=== PATIENT | male | born 1990 | race Caucasian/White ===

== ENCOUNTER 2017-03-29 15:29 | Emergency (ER) | payer SELFPAY ==
[~2017-03-29] VITALS: Ht 175.3 cm; Wt 80.0 kg
[2017-03-29 15:30] VITALS: BP 148/82; PULSE 87; RESP 20; TEMP 98.7; O2SAT 97
[2017-03-29] MEDS ORDERED: CEPHALEXIN MONOHYDRATE 500 MG CAP PO ONE (16:00)
[2017-03-29] MEDS ORDERED: IBUPROFEN 600 MG TAB PO ONE (16:00)
[2017-03-29] MEDS ORDERED: IBUP-232 PO (16:01)
[2017-03-29] MEDS ORDERED: CEPH-460 PO (16:01)
--- NOTE | 2017-03-29 16:01 | PD ---
HPI Chief Complaint: Skin Problem Time Seen by Provider: 15:36 Travel History International Travel<30 days: No Contact w/Intl Traveler<30days: No Traveled to known affect area: No History of Present Illness HPI 27 yo M c/o pain and swelling along R elbow for about 1 week. pt reports fever yesterday. he believes a box may have slid down his arm causing some injury while he was working. no open skin or bleed reproted. pain is gradually decreasing in severity. no swelling about the arm. no distal arm pain/swelling/ sensory change. PFSH Past Medical History Anxiety: Yes Cardiovascular Problems: No Endocrine: No Genitourinary: No Hypertension: Yes Immune Disorder: No Musculoskeletal: No Neurologic: No Reproductive: No Respiratory: No Past Surgical History Abdominal Surgery: No Cardiac Surgery: No Ear Surgery: No Endocrine Surgery: No Eye Surgery: No Genitourinary Surgery: No Gynecologic Surgery: No Oral Surgery: No Thoracic Surgery: No Other Surgery: Yes Social History Alcohol Use: Yes (WEEKENDS) Tobacco Use: No Substance Use: No Allergies-Medications (Allergen,Severity, Reaction): Coded Allergies: No Known Allergies (Verified Adverse Reaction, Unknown, 03/29/17) Reported Meds & Prescriptions Reported Meds & Active Scripts Active Keflex (Cephalexin) 500 Mg Cap 500 Mg PO Q8H 7 Days Ibuprofen 600 Mg Tab 600 Mg PO Q8H 7 Days Review of Systems Except as stated in HPI: all other systems reviewed are Neg General / Constitutional: No: Fever Skin: Positive Lesions, No Rash Physical Exam Narrative GENERAL: 27 yo M, WNWD, NAD, pleasant SKIN: Warm and dry. Along the Radial aspect of the antecubital fossa there is about 5 cm x 1 cm nodule minimal tender somewhat firm swelling. no fluctuance. no erythema or warmth. HEAD: Atraumatic. Normocephalic. EYES: Pupils equal and round. No scleral icterus. No injection or drainage. ENT: No nasal bleeding or discharge. Mucous membranes pink and moist. NECK: Trachea midline. No JVD. CARDIOVASCULAR: Regular rate and rhythm. 2+ radial artery pulse bilaterally. RESPIRATORY: No accessory muscle use. Clear to auscultation. Breath sounds equal bilaterally. GASTROINTESTINAL: Abdomen soft, non-tender, nondistended. Hepatic and splenic margins not palpable. MUSCULOSKELETAL: Extremities without clubbing, cyanosis, or edema. No obvious deformities. No sign upper extremity DVT. NEUROLOGICAL: Awake and alert. No obvious cranial nerve deficits. Motor grossly within normal limits. Five out of 5 muscle strength in the arms and legs. Normal speech. PSYCHIATRIC: Appropriate mood and affect; insight and judgment normal. Data Data Last Documented VS Vital Signs Date Time Temp Pulse Resp B/P (MAP) Pulse Ox O2 Delivery O2 Flow Rate FiO2 03/29/17 15:30 98.7 87 20 148/82 (104) 97 Room Air vs reviewed Orders Orders Ed Discharge Order (03/29/17 15:59) Ibuprofen (Motrin) (03/29/17 16:00) Cephalexin (Keflex) (03/29/17 16:00) MDM Medical Decision Making Medical Screen Exam Complete: Yes Emergency Medical Condition: Yes Medical Record Reviewed: Yes Differential Diagnosis abscess, cellulitis, supervficial thrombophlebitis Narrative Course trace cellulitis is a possibility superficial thrombophlebitis is a possible consideration no sign DVT and Doppler carries very low pretest probability Diagnosis Primary Impression: Superficial thrombophlebitis Qualified Codes: I80.8 - Phlebitis and thrombophlebitis of other sites Med/Other Pt SpecificInfo: Prescription(s) given Scripts Cephalexin (Keflex) 500 Mg Cap 500 MG PO Q8H for Infection for 7 Days, #21 CAP 0 Refills Prov: Jesus Manuel Luna MD 03/29/17 Ibuprofen (Ibuprofen) 600 Mg Tab 600 MG PO Q8H for 7 Days, #21 TAB 0 Refills Prov: Jesus Manuel Luna MD 03/29/17 Disposition: 01 DISCHARGE HOME Condition: Stable Jesus Manuel Luna MD Mar 29, 2017 16:01
== END 2017-03-29 16:26 | disposition home or self-care (01) ==
LOC: NEPK 15:29
DX: I80.8 Phlebitis and thrombophlebitis of other sites (principal); F41.9 Anxiety disorder, unspecified; I10 Essential (primary) hypertension
CPT/HCPCS: 99283

== ENCOUNTER 2017-07-13 09:55 | Emergency (ER) | payer SELFPAY ==
[~2017-07-13] VITALS: Ht 175.3 cm; Wt 77.0 kg
[~2017-07-13 09:55] MED LIST: CEPH-460 PO; IBUP-232 PO
[2017-07-13 09:58] VITALS: BP 142/86; PULSE 99; RESP 18; TEMP 98; O2SAT 96
--- NOTE | 2017-07-13 11:15 | PD ---
HPI Chief Complaint: Skin Problem Time Seen by Provider: 11:03 Travel History International Travel<30 days: No Contact w/Intl Traveler<30days: No Traveled to known affect area: No History of Present Illness HPI 27-year-old male with recurrent tender firm lump in the right antecubital space of the right elbow on the lateral aspect. Patient states he was seen for this several months ago and treated with antibiotics, and it seemed to improve. He states in the last week the area has become more tender and indurated, patient denies IV drug use. He denies injury to the area. He denies fever, chills, or drainage. Pain is currently about a 5 out of 10. He has no known drug allergies. PFSH Past Medical History Anxiety: Yes Cardiovascular Problems: No Diminished Hearing: No Endocrine: No Genitourinary: No Hypertension: Yes Immune Disorder: No Musculoskeletal: No Neurologic: No Reproductive: No Respiratory: No Tetanus Vaccination: Unknown ?: Not Past Surgical History Abdominal Surgery: No Cardiac Surgery: No Ear Surgery: No Endocrine Surgery: No Eye Surgery: No Genitourinary Surgery: No Gynecologic Surgery: No Oral Surgery: No Thoracic Surgery: No Other Surgery: Yes Social History Alcohol Use: Yes (WEEKENDS) Tobacco Use: No Substance Use: No Allergies-Medications (Allergen,Severity, Reaction): Coded Allergies: No Known Allergies (Verified Adverse Reaction, Unknown, 07/13/17) Reported Meds & Prescriptions Reported Meds & Active Scripts Active Keflex (Cephalexin) 500 Mg Cap 500 Mg PO Q8H 7 Days Ibuprofen 600 Mg Tab 600 Mg PO Q8H 7 Days Review of Systems General / Constitutional: No: Fever Eyes: No: Visual changes HENT: No: Headaches Cardiovascular: No: Chest Pain or Discomfort Respiratory: No: Shortness of Breath Gastrointestinal: No: Abdominal Pain Genitourinary: No: Dysuria Musculoskeletal: No: Pain Skin: Positive Lumps (See history of present), Positive Lesions (See history of present illness), No Rash Neurologic: No: Weakness Psychiatric: No: Depression Endocrine: No: Polydipsia Hematologic/Lymphatic: No: Easy Bruising Physical Exam Narrative GENERAL: Patient is in no acute distress SKIN: Warm and dry. Normal color. Normal turgor. Patient has a firm rubbery feeling lump to the right lateral antecubital space of the right elbow insistent with either lipoma, scar tissue, or possible early abscess. There is no significant erythema. There is no streaking or lymphangitis there is no pointing. HEAD: Atraumatic. Normocephalic. EYES: Pupils equal and round. No scleral icterus. No injection or drainage. ENT: No nasal bleeding or discharge. Mucous membranes pink and moist. Pharynx is clear. Airways patent. NECK: Trachea midline. Supple and nontender. CARDIOVASCULAR: Regular rate and rhythm. No murmurs gallops or rubs RESPIRATORY: No accessory muscle use. Clear to auscultation. Breath sounds equal bilaterally. GASTROINTESTINAL: Abdomen soft, non-tender, nondistended. Hepatic and splenic margins not palpable. MUSCULOSKELETAL: Extremities without clubbing, cyanosis, or edema. No obvious deformities. NEUROLOGICAL: Awake and alert. No obvious cranial nerve deficits. Motor grossly within normal limits. Five out of 5 muscle strength in the arms and legs. Normal speech. PSYCHIATRIC: Appropriate mood and affect; insight and judgment normal. Data Data Last Documented VS Vital Signs Date Time Temp Pulse Resp B/P (MAP) Pulse Ox O2 Delivery O2 Flow Rate FiO2 07/13/17 09:58 98.0 99 18 142/86 (104) 96 MDM Medical Decision Making Medical Screen Exam Complete: Yes Emergency Medical Condition: Yes Differential Diagnosis Lipoma. Scar tissue. Keloid. Cellulitis. Early abscess. Narrative Course Patient is given Bactrim DS twice daily 7 days per Patient is given ibuprofen 800 mg 3 times daily as needed pain #30. Patient to follow-up with [facility] as needed. Diagnosis Primary Impression: Lipoma of left upper extremity Referrals: [facility] Patient Instructions: General Instructions Additional Instructions: Patient is given Bactrim DS twice daily 7 days per Patient is given ibuprofen 800 mg 3 times daily as needed pain #30. Patient to follow-up with [facility] as needed. Med/Other Pt SpecificInfo: Prescription(s) given Disposition: DISCHARGE HOME Condition: Stable Leopoldo Weeks Jul 13, 2017 11:15
[2017-07-13] MEDS ORDERED: BACT800T5 PO (11:16)
[2017-07-13] MEDS ORDERED: IBUP1TAB7 PO (11:16)
== END 2017-07-13 11:29 | disposition home or self-care (01) ==
LOC: NEPD 09:55
DX: D17.22 Benign lipomatous neoplasm of skin and subcutaneous tissue of left arm (principal)
CPT/HCPCS: 99283

== ENCOUNTER 2017-08-04 10:58 | Emergency (ER) | payer SELFPAY ==
[~2017-08-04] VITALS: Ht 175.3 cm; Wt 79.5 kg
[~2017-08-04 10:58] MED LIST changes: +BACT800T5 PO; +IBUP1TAB7 PO
[2017-08-04 11:03] VITALS: BP 127/73; PULSE 84; RESP 18; TEMP 98; O2SAT 98
[2017-08-04] MEDS ORDERED: CLIN150C14 PO (12:50)
[2017-08-04] MEDS ORDERED: DOXY100C PO (12:50)
--- NOTE | 2017-08-04 12:55 | PD ---
HPI Chief Complaint: Lump, Cyst, Hernia Time Seen by Provider: 11:26 Travel History International Travel<30 days: No Contact w/Intl Traveler<30days: No Traveled to known affect area: No History of Present Illness HPI This patient complains of an infected lesion on his right arm. This is at the site where he used to inject drugs. He says his last injection was 2 months ago. He does have history of IV drug abuse. He's had no fever. He took a week of Bactrim but it didn't completely clear this up. No drainage. Symptoms severity is mild PFSH Past Medical History Anxiety: Yes Cardiovascular Problems: No Diminished Hearing: No Endocrine: No Genitourinary: No Hypertension: Yes Immune Disorder: No Musculoskeletal: No Neurologic: No Reproductive: No Respiratory: No Past Surgical History Abdominal Surgery: No Cardiac Surgery: No Ear Surgery: No Endocrine Surgery: No Eye Surgery: No Genitourinary Surgery: No Gynecologic Surgery: No Oral Surgery: No Thoracic Surgery: No Other Surgery: Yes Social History Alcohol Use: Yes (WEEKENDS) Tobacco Use: No Substance Use: No Allergies-Medications (Allergen,Severity, Reaction): Coded Allergies: No Known Allergies (Verified Adverse Reaction, Unknown, 07/13/17) Reported Meds & Prescriptions Reported Meds & Active Scripts Active Clindamycin (Clindamycin HCl) 150 Mg Cap 300 Mg PO Q8HR 10 Days Doxycycline Hyclate 100 Mg Cap 100 Mg PO BID Ibuprofen 800 Mg Tab 800 Mg PO Q8H PRN Bactrim DS (Sulfamethoxazole-Trimethoprim) 800-160 Mg Tab 1 Tab PO BID Keflex (Cephalexin) 500 Mg Cap 500 Mg PO Q8H 7 Days Ibuprofen 600 Mg Tab 600 Mg PO Q8H 7 Days Review of Systems General / Constitutional: No: Fever Eyes: No: Visual changes HENT: No: Headaches Cardiovascular: No: Chest Pain or Discomfort Respiratory: No: Shortness of Breath Gastrointestinal: No: Abdominal Pain Genitourinary: No: Dysuria Musculoskeletal: No: Pain Skin: Positive Lesions, No Rash Neurologic: No: Weakness Psychiatric: No: Depression Endocrine: No: Polydipsia Hematologic/Lymphatic: No: Easy Bruising Physical Exam Narrative GENERAL: Well-nourished, well-developed patient in no apparent distress. SKIN: Focused skin assessment reveals no rash and nodules. Skin is Warm and dry. HEAD: Atraumatic. Normocephalic. EYES: Pupils equal and round. No scleral icterus. No injection or drainage. ENT: No nasal bleeding or discharge. Mucous membranes pink and moist. NECK: Trachea midline. No JVD. CARDIOVASCULAR: Regular rate and rhythm. No murmur appreciated. RESPIRATORY: No accessory muscle use. Clear to auscultation. Breath sounds equal bilaterally. GASTROINTESTINAL: Abdomen soft, non-tender, nondistended. Hepatic and splenic margins not palpable. MUSCULOSKELETAL: No obvious deformities. No clubbing. No cyanosis. No edema. Patient has a small erythematous indurated area on the right forearm near the antecubital fossa. There is no fluctuance or drainage. No adenopathy NEUROLOGICAL: Awake and alert. No obvious cranial nerve deficits. Motor grossly within normal limits. Normal speech. PSYCHIATRIC: Appropriate mood and affect; insight and judgment normal. Data Data Last Documented VS Vital Signs Date Time Temp Pulse Resp B/P (MAP) Pulse Ox O2 Delivery O2 Flow Rate FiO2 08/04/17 11:03 98.0 84 18 127/73 (91) 98 MDM Medical Decision Making Medical Screen Exam Complete: Yes Emergency Medical Condition: Yes Medical Record Reviewed: Yes Differential Diagnosis Infected lesion, cellulitis, abscess Narrative Course I have reviewed the patient's electronic medical record. I reviewed his visit from 3 weeks ago. Was diagnosed as a lipoma which it is clearly not a lipoma. Does have characteristics of infection It is not fluctuant and is nowhere near appropriate for incision and drainage Have no clinical suspicion of endocarditis. He has no fever or tachycardia or chest symptoms or murmur He does not require blood cultures or inpatient care or echocardiogram He is currently in a drug rehabilitation place and has not used for 2 months I gave him 10 days of a combination of doxycycline and clindamycin Recommend warm compresses Return for any worsening Diagnosis Primary Impression: Infected skin lesion Additional Impression: History of intravenous drug abuse Additional Instructions: The patient was advised to follow up with their physician and return if they worsen. Take antibiotics Use warm compresses Med/Other Pt SpecificInfo: Prescription(s) given Scripts Clindamycin (Clindamycin) 150 Mg Cap 300 MG PO Q8HR for Infection for 10 Days, CAP 0 Refills Prov: Costa Kimbrough MD 08/04/17 Doxycycline Hyclate (Doxycycline Hyclate) 100 Mg Cap 100 MG PO BID for Infection, #20 CAP 0 Refills Prov: Costa Kimbrough MD 08/04/17 Disposition: 01 DISCHARGE HOME Condition: Stable Costa Kimbrough MD Aug 04, 2017 12:55
[2017-08-04 13:09] VITALS: BP 125/74
== END 2017-08-04 13:16 | disposition home or self-care (01) ==
LOC: NEPD 10:58
DX: L08.9 Local infection of the skin and subcutaneous tissue, unspecified (principal); F19.11 Other psychoactive substance abuse, in remission; I10 Essential (primary) hypertension; F41.9 Anxiety disorder, unspecified
CPT/HCPCS: 99283

== ENCOUNTER 2017-10-02 19:57 | Observation (INO) | payer SELFPAY ==
[~2017-10-02] VITALS: Ht 175.3 cm; Wt 85.0 kg
[~2017-10-02 19:57] MED LIST changes: +CLIN150C14 PO; +DOXY100C PO
[2017-10-02 20:05] VITALS: BP 141/75; PULSE 102; RESP 16; TEMP 102.1; O2SAT 98
--- NOTE | 2017-10-02 20:05 | PD ---
HPI Chief Complaint: OD/ Ingestion Time Seen by Provider: 20:03 Travel History International Travel<30 days: No Contact w/Intl Traveler<30days: No Traveled to known affect area: No History of Present Illness HPI 27-year-old male brought in by [facility] after an unintentional opiate overdose. The patient injected heroin while at work. His coworkers found him unresponsive. They began doing chest compressions and administered 8 mg of nasal Narcan with significant improvement in mental status. Patient arrives stating that he feels dope sick. He denies using any other drugs. He reports that this was an unintentional overdose. He is not suicidal. [facility] Past Medical History Anxiety: Yes Cardiovascular Problems: No Diminished Hearing: No Endocrine: No Genitourinary: No Hypertension: Yes Immune Disorder: No Musculoskeletal: No Neurologic: No Reproductive: No Respiratory: No Past Surgical History Abdominal Surgery: No Cardiac Surgery: No Ear Surgery: No Endocrine Surgery: No Eye Surgery: No Genitourinary Surgery: No Gynecologic Surgery: No Oral Surgery: No Thoracic Surgery: No Other Surgery: Yes Social History Alcohol Use: Yes (WEEKENDS) Tobacco Use: No Substance Use: No Allergies-Medications (Allergen,Severity, Reaction): Coded Allergies: No Known Allergies (Verified Adverse Reaction, Unknown, 10/02/17) Reported Meds & Prescriptions Reported Meds & Active Scripts Active No Active Prescriptions or Reported Medications Review of Systems Except as stated in HPI: all other systems reviewed are Neg Physical Exam Narrative GENERAL: Well-developed, well-nourished, awake, alert, no apparent distress. SKIN: Focused skin assessment warm/dry. No splinter hemorrhages, Janeway lesions, or Osler nodes. HEAD: Atraumatic. Normocephalic. EYES: Pupils equal and round. No scleral icterus. No injection or drainage. ENT: No nasal bleeding or discharge. Mucous membranes pink and dry. NECK: Trachea midline. No JVD. CARDIOVASCULAR: Tachycardic, rate 110, regular. No murmurs. RESPIRATORY: No accessory muscle use. Clear to auscultation. Breath sounds equal bilaterally. GASTROINTESTINAL: Abdomen soft, non-tender, nondistended. MUSCULOSKELETAL: No obvious deformities. No clubbing. No cyanosis. No edema. NEUROLOGICAL: Awake and alert. No obvious cranial nerve deficits. Motor grossly within normal limits. Normal speech. PSYCHIATRIC: Appropriate mood and affect; insight and judgment normal. Data Data Last Documented VS Vital Signs Date Time Temp Pulse Resp B/P (MAP) Pulse Ox O2 Delivery O2 Flow Rate FiO2 10/02/17 22:42 99.0 84 16 142/85 (104) 100 Room Air Orders Orders Sodium Chlor 0.9% 1000 Ml Inj (Ns 1000 M (10/02/17 20:15) Complete Blood Count With Diff (10/02/17 20:19) Comprehensive Metabolic Panel (10/02/17 20:19) Iv Access Insert/Monitor (10/02/17 20:19) Ecg Monitoring (10/02/17 20:19) Oximetry (10/02/17 20:19) Sodium Chloride 0.9% Flush (Ns Flush) (10/02/17 20:30) Acetaminophen (Tylenol) (10/02/17 20:30) Urinalysis - C+S If Indicated (10/02/17 21:29) Drug Screen, Random Urine (10/02/17 21:29) Chest, Single Ap (10/02/17 ) Blood Culture (10/02/17 21:29) Electrocardiogram (10/02/17 20:03) Sodium Chlor 0.9% 1000 Ml Inj (Ns 1000 M (10/02/17 22:00) Vancomycin Inj (Vancomycin Inj) (10/02/17 22:15) Piperacil-Tazo 4.5 Gm Premix (Zosyn 4.5 (10/02/17 22:15) Labs Laboratory Tests Test 10/02/17 20:25 10/02/17 22:10 White Blood Count 11.5 TH/MM3 Red Blood Count 4.67 MIL/MM3 Hemoglobin 13.5 GM/DL Hematocrit 39.4 % Mean Corpuscular Volume 84.3 FL Mean Corpuscular Hemoglobin 29.0 PG Mean Corpuscular Hemoglobin Concent 34.4 % Red Cell Distribution Width 14.4 % Platelet Count 234 TH/MM3 Mean Platelet Volume 8.4 FL Neutrophils (%) (Auto) 82.9 % Lymphocytes (%) (Auto) 8.2 % Monocytes (%) (Auto) 8.1 % Eosinophils (%) (Auto) 0.2 % Basophils (%) (Auto) 0.6 % Neutrophils # (Auto) 9.6 TH/MM3 Lymphocytes # (Auto) 1.0 TH/MM3 Monocytes # (Auto) 0.9 TH/MM3 Eosinophils # (Auto) 0.0 TH/MM3 Basophils # (Auto) 0.1 TH/MM3 CBC Comment DIFF FINAL Differential Comment Blood Urea Nitrogen 9 MG/DL Creatinine 1.13 MG/DL Random Glucose 119 MG/DL Total Protein 7.2 GM/DL Albumin 3.9 GM/DL Calcium Level 8.7 MG/DL Alkaline Phosphatase 69 U/L Aspartate Amino Transf (AST/SGOT) 25 U/L Alanine Aminotransferase (ALT/SGPT) 28 U/L Total Bilirubin 0.5 MG/DL Sodium Level 137 MEQ/L Potassium Level 3.6 MEQ/L Chloride Level 103 MEQ/L Carbon Dioxide Level 27.7 MEQ/L Anion Gap 6 MEQ/L Estimat Glomerular Filtration Rate 77 ML/MIN Urine Color YELLOW Urine Turbidity CLEAR Urine pH 6.5 Urine Specific Fre[place] 1.018 Urine Protein NEG mg/dL Urine Glucose (UA) NEG mg/dL Urine Ketones NEG mg/dL Urine Occult Blood NEG Urine Nitrite NEG Urine Bilirubin NEG Urine Urobilinogen LESS THAN 2.0 MG/DL Urine Leukocyte Esterase NEG Urine RBC 1 /hpf Urine WBC 1 /hpf Urine Hyaline Casts 2 /lpf Urine Mucus FEW /lpf Microscopic Urinalysis Comment CULT NOT INDICATED Urine Opiates Screen POS Urine Barbiturates Screen NEG Urine Amphetamines Screen NEG Urine Benzodiazepines Screen NEG Urine Cocaine Screen POS Urine Cannabinoids Screen NEG MDM Medical Decision Making Medical Screen Exam Complete: Yes Emergency Medical Condition: Yes Interpretation(s) EKG: Sinus, rate 107, normal axis, normal intervals, no acute ischemic abnormality. Differential Diagnosis Opioid overdose, bacteremia, pneumonia, endocarditis, drug-induced hyperthermia Narrative Course Initial vital signs show heart rate 102, blood pressure 141/75, pulse ox 90% on room air, oral temp of 102.1F. CBC: WBC 11.5, hemoglobin 13.5, hematocrit 39.4, platelets 234, neutrophils 83%. CMP is unremarkable. UA is not suggestive of UTI. Urine drug screen is positive for opiates and cocaine. Chest x-ray: No acute intrathoracic disease. Given fever with this history of IV drug use, blood cultures were obtained. The patient was started empirically on antibiotics to cover for bacteremia/ endocarditis. He will be admitted for observation and follow-up blood cultures. He is amenable to this plan. Case discussed with the medical residents. They will make the patient to their service under Dr. Soto Diagnosis Primary Impression: IV drug abuse Additional Impressions: Fever Qualified Codes: R50.9 - Fever, unspecified Opioid overdose Qualified Codes: T40.2X1A - Poisoning by other opioids, accidental ( unintentional), initial encounter R/O Endocarditis Admitting Information Admitting Physician Requests: Observation Scripts No Active Prescriptions or Reported Meds Rui Anderson MD October 02, 2017 20:05
[2017-10-02] MEDS ORDERED: SODIUM CHLOR 0.9% 1000 ML INJ 1,000 ML IV ONE ×2 (20:15→22:00)
[2017-10-02] MEDS ORDERED: SODIUM CHLORIDE 0.9% FLUSH 10 ML FLUSH IV FLUSH PRN (20:30)
[2017-10-02] MEDS ORDERED: ACETAMINOPHEN 325 MG TAB PO ONE (20:30)
[2017-10-02 21:05] LABS: AUTOMATED NEUTROPHIL # 9.6 TH/MM3 (1.8-7.7); BASOPHIL # 0.1 TH/MM3 (0-0.2); BASOPHIL % 0.6 % (0.0-2.0); EOSINOPHIL % 0.2 % (0.0-4.0); HEMATOCRIT 39.4 % (39.0-51.0); HEMOGLOBIN 13.5 GM/DL (13.0-17.0); LYMPH % 8.2 % (9.0-44.0); MEAN CELL VOLUME 84.3 FL (80.0-100.0); MEAN CORPUSCULAR HGB CONC 34.4 % (32.0-36.0); MEAN PLATELET VOLUME 8.4 FL (7.0-11.0); MONO % 8.1 % (0.0-8.0); MONOCYTE # 0.9 TH/MM3 (0-0.9); NEUT % 82.9 % (16.0-70.0); PLATELET COUNT 234 TH/MM3 (150-450); RED BLOOD COUNT 4.67 MIL/MM3 (4.50-5.90); RED CELL DISTRIBUTION WIDTH 14.4 % (11.6-17.2); WHITE BLOOD COUNT 11.5 TH/MM3 (4.0-11.0)
[2017-10-02 21:30] LABS: ALBUMIN 3.9 GM/DL (3.4-5.0); ALT (GPT) 28 U/L (12-78); AST (GOT) 25 U/L (15-37); BICARBONATE 27.7 MEQ/L (21.0-32.0); BLOOD UREA NITROGEN 9 MG/DL (7-18); CALCIUM 8.7 MG/DL (8.5-10.1); CHLORIDE 103 MEQ/L (98-107); CREATININE 1.13 MG/DL (0.60-1.30); GLOMERULAR FILTRATION RATE 77 ML/MIN (>89); GLUCOSE,RANDOM 119 MG/DL (74-106); SODIUM (NA) 137 MEQ/L (136-145)
[2017-10-02 21:33] LABS: ALKALINE PHOSPHATASE 69 U/L (45-117); TOTAL BILIRUBIN ADULT 0.5 MG/DL (0.2-1.0); TOTAL PROTEIN 7.2 GM/DL (6.4-8.2)
--- NOTE | 2017-10-02 21:50 | RADRPT ---
EXAM DATE: 10/02/2017 9:44 PM EDT AGE/SEX: 27 years / Male INDICATIONS: Fever. CLINICAL DATA: This is the patient's initial encounter. Patient reports that signs and symptoms have been present for 1 day and indicates a pain score of 0/10. MEDICAL/SURGICAL HISTORY: None. None. COMPARISON: [facility] [place], CHEST SINGLE AP, 04/03/2013. . FINDINGS: A single AP view of the chest demonstrates the lungs to be symmetrically aerated without evidence of mass, infiltrate or effusion. The cardiomediastinal contours are unremarkable. Osseous structures a re intact. CONCLUSION: No acute intrathoracic disease. Electronically signed by: Cyrus Mora MD 10/02/2017 9:49 PM EDT
[2017-10-02] MEDS ORDERED: VANCOMYCIN INJ 1,000 MG in SODIUM CHLOR 0.9% 250 ML INJ 250 ML IV ONE (22:15)
[2017-10-02] MEDS ORDERED: PIPERACIL-TAZO 4.5 GM PREMIX 100 ML IV ONE (22:15)
[2017-10-02 22:30] LABS: BILIRUBIN, URINE NEG (NEG); BLOOD, URINE NEG (NEG); GLUCOSE,URINE NEG (NEG); HYALINE CAST, URINE 2 /lpf (RARE); KETONE, URINE NEG (NEG); MUCUS URINE FEW /lpf (OCC); NITRITE,URINE NEG (NEG); PH, URINE 6.5 (5.0-8.5); URINE COLOR YELLOW (YELLW/STRAW); URINE LEUKOCYTE ESTERASE NEG (NEG)
[2017-10-02 22:42] VITALS: BP 142/85; PULSE 84; RESP 16; TEMP 99; O2SAT 100
--- NOTE | 2017-10-02 23:29 | HHI.HP ---
HPI Service Family Medicine Primary Care Physician Unknown Admission Diagnosis Diagnoses: International Travel<30 Days: No Contact w/Intl Traveler<30days: No Known Affected Area: No History of Present Illness 27 y/o M presents w/fever after heroin overdose. 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 Took less than his usual amount but was told that after using, he started having agonal breathing and became cyanotic at his desk. Underwent CPR and resuscitation. A co-worker found narcane and gave it to him twice, which revived him. He says that he is now feeling fine. Similar episodes of overdose have happened 8 times, but he has not been hospitalized each time. Has had "sterile" abscesses in his arm, his last abscess appearing two months ago as a large nodule on the lateral edge of his right elbow. He does not know what it is, describes it as appearing after "shooting up" and is tender to touch. Has received antibiotics for it twice, but each time, it has worsened after some time. Last treated 3-4 months ago for infection at the site. Thinks it is currently a scar. When patient woke up this morning, he also injected heroin, and afterwards felt hot and nauseous. No rhinorrhea. No chest pain, SOB, or diarrhea. No cough. No recent headaches or neck stiffness. No back pain. Does not have a PCP. Hx solely of heroin use, states he has only used clean needles. Before today, he had been clean for 45 days after attending a detox in [place], then staying at a [place] [facility]. Goes to and has a sponsor. Review of Systems Constitutional: DENIES: Weight loss, Change in appetite, Night Sweats Endocrine: DENIES: Polyuria Eyes: DENIES: Blurred vision, Vision loss Ears, nose, mouth, throat: DENIES: Hearing loss, Throat pain, Running Nose Respiratory: DENIES: Cough, Shortness of breath Cardiovascular: DENIES: Chest pain, Palpitations Gastrointestinal: DENIES: Constipation, Diarrhea, Vomiting Genitourinary: DENIES: Urinary frequency, Urinary incontinence Musculoskeletal: DENIES: Joint pain Hematologic/lymphatic: DENIES: Bruising Immunologic/allergic: DENIES: Eczema Neurologic: DENIES: Headache, Poor Balance Past Family Social History Past Medical History Anxiety Past Surgical History Titanium nessa in femur for fracture - 4 years ago Broke right hand, underwent surgery - 10 years ago Allergies: Coded Allergies: No Known Allergies (Verified Adverse Reaction, Unknown, 10/02/17) Family History Mom: not known Dad: not known Social History Lives at a sober house in [place] Smokes 1 pack/day No other recreational/illicit drug use 3 beers x1 on the weekend Physical Exam Vital Signs Vital Signs Date Time Temp Pulse Resp B/P (MAP) Pulse Ox O2 Delivery O2 Flow Rate FiO2 10/02/17 22:42 99.0 84 16 142/85 (104) 100 Room Air 10/02/17 20:05 102.1 102 16 141/75 (97) 98 10/02/17 20:03 112 Room Air Physical Exam GENERAL: This is a well-nourished, heavily tatooed M resting comfortably in bed. In no acute distress. SKIN: Cool and dry. 1 inch area of elevated skin that is dark purple w/ faint surrounding erythema less than a mm from edge on the lateral extensor surface of the right elbow. Some tenderness to palpation. Area of induration v skin thickening (track kylie) felt at site. No lesions observed on hands, legs, reanna, between toes or fingers. No splinter hemorrhages or janeway lesions noted. HEAD: Atraumatic. Normocephalic. No temporal or scalp tenderness. EYES: Pupils equal round and reactive. Extraocular motions intact. No scleral icterus. No injection or drainage. ENT: Nose without bleeding, purulent drainage or septal hematoma. Throat without erythema, tonsillar hypertrophy or exudate. Uvula midline. Airway patent. NECK: Trachea midline. No lymphadenopathy. Supple, nontender. CARDIOVASCULAR: Regular rate and rhythm without murmurs, gallops, or rubs auscultated. RESPIRATORY: Clear to auscultation. Breath sounds equal bilaterally. No wheezes , rales, or rhonchi. GASTROINTESTINAL: Abdomen soft, non-tender, nondistended. No hepato-splenomegaly , or palpable masses. No guarding. MUSCULOSKELETAL: Extremities without clubbing, cyanosis, or edema. No joint tenderness, effusion, or edema noted. NEUROLOGICAL: Awake and alert. No focal deficits. Motor and sensory grossly within normal limits. Normal speech. Laboratory Laboratory Tests Test 10/02/17 20:25 10/02/17 22:10 White Blood Count 11.5 Red Blood Count 4.67 Hemoglobin 13.5 Hematocrit 39.4 Mean Corpuscular Volume 84.3 Mean Corpuscular Hemoglobin 29.0 Mean Corpuscular Hemoglobin Concent 34.4 Red Cell Distribution Width 14.4 Platelet Count 234 Mean Platelet Volume 8.4 Neutrophils (%) (Auto) 82.9 Lymphocytes (%) (Auto) 8.2 Monocytes (%) (Auto) 8.1 Eosinophils (%) (Auto) 0.2 Basophils (%) (Auto) 0.6 Neutrophils # (Auto) 9.6 Lymphocytes # (Auto) 1.0 Monocytes # (Auto) 0.9 Eosinophils # (Auto) 0.0 Basophils # (Auto) 0.1 CBC Comment DIFF FINAL Differential Comment Blood Urea Nitrogen 9 Creatinine 1.13 Random Glucose 119 Total Protein 7.2 Albumin 3.9 Calcium Level 8.7 Alkaline Phosphatase 69 Aspartate Amino Transf (AST/SGOT) 25 Alanine Aminotransferase (ALT/SGPT) 28 Total Bilirubin 0.5 Sodium Level 137 Potassium Level 3.6 Chloride Level 103 Carbon Dioxide Level 27.7 Anion Gap 6 Estimat Glomerular Filtration Rate 77 Urine Color YELLOW Urine Turbidity CLEAR Urine pH 6.5 Urine Specific [place] 1.018 Urine Protein NEG Urine Glucose (UA) NEG Urine Ketones NEG Urine Occult Blood NEG Urine Nitrite NEG Urine Bilirubin NEG Urine Urobilinogen LESS THAN 2.0 Urine Leukocyte Esterase NEG Urine RBC 1 Urine WBC 1 Urine Hyaline Casts 2 Urine Mucus FEW Microscopic Urinalysis Comment CULT NOT INDICATED Urine Opiates Screen POS Urine Barbiturates Screen NEG Urine Amphetamines Screen NEG Urine Benzodiazepines Screen NEG Urine Cocaine Screen POS Urine Cannabinoids Screen NEG Date/Time Source Procedure Growth Status 10/02/17 21:50 Blood Peripheral Aerobic Blood Culture Pending Received 10/02/17 21:50 Blood Peripheral Anaerobic Blood Culture Pending Received Result Diagram: 10/02/17202410/02/172024 Imaging Last Impressions Chest X-Ray 10/02/17 0000 Signed Impressions: CONCLUSION: No acute intrathoracic disease. Course Per ED physician note: "Initial vital signs show heart rate 102, blood pressure 141/75, pulse ox 90% on room air, oral temp of 102.1F. CBC: WBC 11.5, hemoglobin 13.5, hematocrit 39.4, platelets 234, neutrophils 83%. CMP is unremarkable. UA is not suggestive of UTI. Urine drug screen is positive for opiates and cocaine. Chest x-ray: No acute intrathoracic disease. Given fever with this history of IV drug use, blood cultures were obtained. The patient was started empirically on antibiotics to cover for bacteremia/ endocarditis." Caprini VTE Risk Assessment Caprini VTE Risk Assessment: No/Low Risk (score <= 1) Assessment and Plan Assessment and Plan 27 y/o M w/hx of IVDU presenting w/fever (102.1). Admitted for observation to further assess for infection and r/o endocarditis. Code Status FULL Problem List: (1) Fever ICD Codes: R50.9 - Fever, unspecified Status: Acute Plan: WBC count slightly elevated IVDU hx w/clean needles CXR clear, physical exam benign except for chronic track kylie +/- developing skin infection Vanc and Zosyn x1, Tyenol, NS bolus x1 in the ED Meets two of Hopson's minor criteria, no indication to treat w/antibiotics at this time 2D echo Tylenol PRN for fever >100.4 HIV screen Hep profile blood cultures cardiac tele (2) IV drug abuse ICD Codes: F19.10 - Other psychoactive substance abuse, uncomplicated Status: Chronic Plan: Has had several relapses CM consulted (3) FEN Plan: Fluids: not indicated Electrolytes: none Nutrition: regular DVT prophy: not indicated Problem Qualifiers (1) Fever: Qualified Codes: R50.9 - Fever, unspecified Erum Joyner MD R1 October 02, 2017 23:29
[2017-10-03] VITALS (9 sets, daily range): BP systolic 115–126; BP diastolic 69–76; PULSE 63–95; RESP 16–18; TEMP 96.2–98.5; O2SAT 91–99
[2017-10-03] MEDS ORDERED: SODIUM CHLORIDE 0.9% FLUSH 10 ML FLUSH IV FLUSH PRN ×2 (00:15→01:45)
[2017-10-03] MEDS ORDERED: BISACODYL 10 MG SUPP RECTAL PRN ×2 (00:30→01:45)
[2017-10-03] MEDS ORDERED: SENNOSIDES 8.6 MG TAB PO PRN ×2 (00:30→01:45)
[2017-10-03] MEDS ORDERED: MAGNESIUM HYDROXIDE SUSP 30 ML CUP PO PRN ×2 (00:30→01:45)
[2017-10-03] MEDS ORDERED: LACTULOSE SYRUP 20 GM/30 ML CUP PO PRN ×2 (00:30→01:45)
[2017-10-03] MEDS ORDERED: NALOXONE HCL 0.4 MG/ML AMP IV PUSH PRN ×2 (00:30→01:45)
[2017-10-03] MEDS ORDERED: METOCLOPRAMIDE HCL 10 MG/2 ML VIAL IV PUSH PRN (01:45)
[2017-10-03] MEDS ORDERED: ACETAMINOPHEN 325 MG TAB PO PRN (01:45)
[2017-10-03] MEDS ORDERED: SODIUM CHLORIDE 0.9% FLUSH 10 ML FLUSH IV FLUSH SCH ×2 (09:00)
[2017-10-03 10:44] LABS: AUTOMATED NEUTROPHIL # 8.1 TH/MM3 (1.8-7.7); BASOPHIL # 0.1 TH/MM3 (0-0.2); BASOPHIL % 0.7 % (0.0-2.0); EOSINOPHIL # 0.1 TH/MM3 (0-0.4); EOSINOPHIL % 0.6 % (0.0-4.0); HEMATOCRIT 38.3 % (39.0-51.0); HEMOGLOBIN 13.7 GM/DL (13.0-17.0); LYMPH % 11.8 % (9.0-44.0); LYMPHOCYTE # 1.2 TH/MM3 (1.0-4.8); MEAN CELL VOLUME 84.2 FL (80.0-100.0); MEAN CORPUSCULAR HEMOGLOBIN 30.2 PG (27.0-34.0); MEAN CORPUSCULAR HGB CONC 35.8 % (32.0-36.0); MEAN PLATELET VOLUME 8.5 FL (7.0-11.0); MONOCYTE # 1.1 TH/MM3 (0-0.9); NEUT % 76.9 % (16.0-70.0); PLATELET COUNT 200 TH/MM3 (150-450); RED BLOOD COUNT 4.55 MIL/MM3 (4.50-5.90); RED CELL DISTRIBUTION WIDTH 15.1 % (11.6-17.2); WHITE BLOOD COUNT 10.5 TH/MM3 (4.0-11.0)
[2017-10-03 11:08] LABS: BICARBONATE 28.7 MEQ/L (21.0-32.0); CALCIUM 8.7 MG/DL (8.5-10.1); CREATININE 0.72 MG/DL (0.60-1.30)
--- NOTE | 2017-10-03 12:02 | HHI.PR ---
Addendum to Inpatient Note Addendum Reason: Additional Documentation Additional Information Patient provided two phone numbers to try if blood cultures return positive and he requires notification. The first phone number he provided was his grandmother, Yasmin aLguna, who can be reached at [phone]. The other phone number is the patient's cell phone number: [phone]. Sher Suarez MD R2 October 03, 2017 12:02
--- NOTE | 2017-10-03 13:29 | HHI.FPPN ---
Subjective Remarks This progress note is written in conjunction with resident H&P dated 10/02/2017. Isaac Woods is a 27yo gentleman with h/o IV heroin use admitted for evaluation of fever after injection IV heroin while he was at work. Narcan was administered in his work place, and resuscitation was provided for agonal breathing. Overnight, he is without complaints. No further fevers. This morning, he feels ready for discharge and reports that he can return to his sober living house. He has multiple tattoos, which are all clean needle tattoos. ROS: No chest pain, SOB, palpitations. No fever overnight. PMH/PSxH/SocHx/FamHx: Significant for: IV drug use. Anxiety. orthopedic surgeries. Tobacco abuse. Had been clean x 45 days, until relapse yesterday. Objective Vitals Vital Signs Date Time Temp Pulse Resp B/P (MAP) Pulse Ox O2 Delivery O2 Flow Rate FiO2 10/03/17 11:56 97.3 76 17 123/70 (87) 94 10/03/17 08:11 97.2 67 18 118/73 (88) 97 10/03/17 07:15 81 10/03/17 06:24 Nasal Cannula 3.00 10/03/17 04:15 68 10/03/17 04:00 98.3 63 16 115/69 (84) 99 10/03/17 02:45 85 10/03/17 01:55 98.5 75 16 126/75 (92) 91 10/02/17 22:42 99.0 84 16 142/85 (104) 100 Room Air 10/02/17 20:05 102.1 102 16 141/75 (97) 98 10/02/17 20:03 112 Room Air I/O 10/02/17 10/02/17 10/02/17 10/03/17 10/03/17 10/03/17 07:00 15:00 23:00 07:00 15:00 23:00 Intake Total 500 ml Balance 500 ml Intake Oral 500 ml # Voids 1 Result Diagram: 10/03/17 1023 10/03/17 1023 Objective Remarks Significant for: In NAD, no resp distress. Nontoxic. Right forearm with reddened area as described in resident H&P. Mildly tender, no increased calor. No splinter hemorrhages. No murmur. A/P Assessment and Plan 27 y/o M w/hx of IVDU presenting w/fever (102.1). Admitted for observation to further assess for infection and r/o endocarditis. Discharge Planning Possible discharge today, pending echo results. Attending Attestation Patient seen, examined, and discussed with resident team. Problem List: (1) Fever ICD Codes: R50.9 - Fever, unspecified Status: Acute Plan: WBC count slightly elevated IVDU hx w/ clean needles CXR clear, physical exam benign except for chronic track kylie +/- developing skin infection Vanc and Zosyn x1, Tyenol, NS bolus x1 in the ED Meets two of Hopson's minor criteria, no indication to treat w/antibiotics at this time 2D echo Tylenol PRN for fever >100.4 HIV screen: negative Hep profile: negative blood cultures: pending (2) IV drug abuse ICD Codes: F19.10 - Other psychoactive substance abuse, uncomplicated Status: Chronic Plan: Has had several relapses. CM consulted. Pt reports he can return to his sober house at discharge. Problem Qualifiers (1) Fever: Qualified Codes: R50.9 - Fever, unspecified Janeth Soto MD October 03, 2017 13:29
--- NOTE | 2017-10-03 14:03 | HHI.DCPOC ---
Discharge Care Plan Diagnosis: (1) Opioid overdose Goals to Promote Your Health * To prevent worsening of your condition and complications * To maintain your health at the optimal level Directions to Meet Your Goals Take your medications as prescribed Follow your dietary instruction Follow activity as directed Keep your appointments as scheduled Take your immunizations and boosters as scheduled If your symptoms worsen call your PCP, if no PCP go to Urgent Care Center or Emergency Room Smoking is Dangerous to Your Health. Avoid second hand smoke Call the 24-hour hour crisis hotline for domestic abuse at Teri Barone MD R3 October 03, 2017 14:03
--- NOTE | 2017-10-03 14:08 | EKG ---
Date Performed: 10/02/2017 Time Performed: 20:03:39 PTAGE: 27 years EKG: SINUS TACHYCARDIA INCOMPLETE RIGHT BUNDLE BRANCH BLOCK ABNORMAL RHYTHM ECG PREVIOUS TRACING : 04/12/2013 11.37 DOCTOR: Raimundo Frank Interpretating Date/Time 10/03/2017 14:05:41
== END 2017-10-03 18:10 | disposition left against medical advice (07) ==
LOC: NEPC 19:57 → NEDA 23:33 → NEPHCDU 10-03 01:54
PROVIDERS: ADMIT Family Medicine; ATTEND Family Medicine
DX: T40.1X1A Poisoning by heroin, accidental (unintentional), initial encounter (principal); F41.9 Anxiety disorder, unspecified; I10 Essential (primary) hypertension; F19.10 Other psychoactive substance abuse, uncomplicated; R50.9 Fever, unspecified; F17.210 Nicotine dependence, cigarettes, uncomplicated; L08.9 Local infection of the skin and subcutaneous tissue, unspecified; I45.10 Unspecified right bundle-branch block
CPT/HCPCS: 71045; 80048; 80053; 80074; 80307; 81001; 85025; 87040; 87389; 93005; 96361; 96365; 96368; 99285; G0378; J2543; J3370; J7030; J7050; G0475